=== PATIENT | male | born 1960 | race Caucasian/White ===

== ENCOUNTER 2017-11-02 14:40 | Emergency (ER) | payer OTHER, SELFPAY ==
[2017-11-02 14:40] VITALS: BP 144/90; PULSE 80; RESP 16; TEMP 36.6; O2SAT 97; BMI 30.4
--- NOTE | 2017-11-02 15:38 | ED.VISSUMM ---
- ER Visit Summary Date of Service: 11/02/17 Chief Complaint: Left knee pain History of Present Illness: The patient is a 56 M who climbed out of a truck and stepped off some steps and felt like his kneecap went on the outside of his knee. This occurred a couple hours ago. He states he grabbed hold of his patella and relocated to the right position. He then went on to work a few more hours and came in. He has no history of a patellar dislocation or subluxation. He took nothing for it. He was able to walk on it and use the clutch on his truck but now it starting to hurt worse. Physical Examination: Vitals are reviewed. Left knee exam reveals painful range of motion. He has tenderness to palpation of the medial joint line. His extensor mechanism is intact Test Results: X-ray of the left knee reveals a slightly lateral patellar subluxation. He does have a joint effusion Emergency Department Course and Treatment: Patient likely did have a patellar dislocation and relocated it himself. There is some mild lateral subluxation of the patella. His extensor mechanism is intact. Patient will be placed in a knee immobilizer with crutches. He will use NSAIDs at home. He will follow-up with corporate care Treatment Plan: [] Disposition: Discharge Impression: Left patellar subluxation This note was generated with [employer] dictation software. It may contain incorrect words, spelling, and punctuation that were not noted in review of the chart prior to signing ED Disposition - Plan for ED Patient: Chief Complaint: Lower Extremity Injury Referrals: Care Physician,No Primary [Primary Care Provider] -
--- NOTE | 2017-11-02 15:41 | ED.DEP ---
ED Disposition - Plan for ED Patient: Disposition: Home or Assisted Living Chief Complaint: Lower Extremity Injury Instructions: ED Dislocation Patella Referrals: Care Physician,No Primary [Primary Care Provider] - Hamzah Hardin DO [STAFF PHYSICIAN] -
== END 2017-11-02 17:02 | disposition home or self-care (01) ==
LOC: ED 15:59
PROVIDERS: Emergency Provider Emergency Medicine; PCP Internal Medicine
DX: S83.012A Lateral subluxation of left patella, initial encounter (principal); X58.XXXA Exposure to other specified factors, initial encounter; Y93.9 Activity, unspecified; Y92.812 Truck as the place of occurrence of the external cause; Y99.9 Unspecified external cause status; E11.9 Type 2 diabetes mellitus without complications; Z72.0 Tobacco use; Z79.82 Long term (current) use of aspirin; Z79.899 Other long term (current) drug therapy
CPT/HCPCS: 73560; 99284